=== PATIENT | male | born 1985 | race Caucasian/White ===

== ENCOUNTER 2017-08-06 15:31 | Emergency (ER) | payer SELFPAY ==
[~2017-08-06] VITALS: Ht 165.1 cm; Wt 67.0 kg
[~2017-08-06 15:31] MED LIST: AMOXICILLIN500 MG PO; AUGMENTIN875TAB PO; GENTAMICIN15 ML/BTL OD; ULTRAM50 M1 PO
[2017-08-06 16:31] LABS: HEMATOCRIT 39.8 % (39.0-50.0); HEMOGLOBIN 13.5 g/dl (14.0-18.0); IMMATURE GRANULOCYTES 0.1 % (0.0-1.0); MEAN CELL VOLUME 84.9 fL CALC (80.0-100.0); MEAN CORPUSCULAR HGB 28.8 pG CALC (26.0-32.0); MEAN CORPUSCULAR HGB CONC 33.9 g/L CALC (32.0-36.0); NEUT# 4.08 thou/uL (1.82-7.42); RED BLOOD COUNT 4.69 mill/uL (4.70-6.10); RED CELL DISTRI WIDTH 12.6 % (11.5-15.5)
[2017-08-06 16:48] LABS: ALBUMIN 4.3 g/dL (3.2-5.0); ALKALINE PHOSPHATASE 70 u/l (38-126); ANION GAP 16 (6-22 (CALC)); BILIRUBIN, TOTAL 0.7 mg/dL (0.0-1.4); BUN 10 mg/dL (9-20); BUN/CREATININE RATIO 13 (12-20 (CALC)); CALCIUM 8.7 mg/dL (8.4-10.2); CARBON DIOXIDE 25 mmol/l (22-30); CHLORIDE 104 mmol/l (95-108); CREATININE 0.7 mg/dL (0.7-1.3); GFR > 60 ML/MIN (>=60 (CALC)); GFR FOR AFR.AMER. > 60 ML/MIN (>=60 (CALC)); GLUCOSE 87 mg/dL (75-110); POTASSIUM 3.9 mmol/l (3.5-5.1); SGOT/AST 30 u/l (17-59); SGPT/ALT 41 u/l (21-72); SODIUM 141 mmol/l (137-146); TOTAL PROTEIN 7.2 g/dL (6.3-8.2)
[2017-08-06 17:55] LABS: URINE BILIRUBIN - DIPSTICK NEGATIVE (NEGATIVE); URINE BLOOD DIPSTICK NEGATIVE (NEGATIVE); URINE CLARITY CLEAR; URINE COLOR YELLOW; URINE GLUCOSE - DIPSTICK NEGATIVE (NEGATIVE); URINE KETONE NEGATIVE (NEGATIVE); URINE LEUK ESTERASE NEGATIVE (NEGATIVE); URINE NITRITE - DIPSTICK NEGATIVE (Negative); URINE PROTEIN - DIPSTICK NEGATIVE (NEG-TRACE); URINE UROBILINOGEN - DIPSTICK 0.2 E.U./dL (0.2)
[2017-08-06 18:01] LABS: BARBITURATES NEGATIVE (NEGATIVE); COCAINE NEGATIVE (NEGATIVE); METHADONE NEGATIVE (NEGATIVE); OXCYCODONE NEGATIVE (NEGATIVE); TETRAHYDROCANNABIONOL NEGATIVE (NEGATIVE); TRICYLIC ANTIDEPRESSANTS NEGATIVE (NEGATIVE)
[2017-08-06] MEDS ORDERED: PERCOCET 5/325M1 TAB PO (21:18)
[2017-08-06 21:47] VITALS: BP 94/57
== END 2017-08-06 21:47 | disposition home or self-care (01) | DRG 103 ==
LOC: ED 15:31
PROVIDERS: Emergency Medicine
PROC: 009U3ZX Drainage of Spinal Canal, Percutaneous Approach, Diagnostic (ICD-10-PCS; principal; 2017-08-06)
DX: R51 Headache (principal)

== ENCOUNTER 2019-04-17 12:21 | Emergency (ER) | payer SELFPAY ==
[~2019-04-17] VITALS: Ht 165.1 cm; Wt 57.0 kg
[~2019-04-17 12:21] MED LIST changes: +PERCOCET 5/325M1 TAB PO
[2019-04-17] MEDS ORDERED: PREDNISONE20 MG PO (13:49)
[2019-04-17 13:52] VITALS: BP 109/55
== END 2019-04-17 14:03 | disposition home or self-care (01) | DRG 607 ==
LOC: ED 12:21
DX: L55.0 Sunburn of first degree (principal); Y93.89 Activity, other specified; Y92.832 Beach as the place of occurrence of the external cause